=== PATIENT | male | born 1960 | race American Indian/Alaskan Native ===

== ENCOUNTER 2017-04-29 12:55 | Emergency (ER) | payer SELFPAY ==
[2017-04-29 12:56] VITALS: BMI 16.9
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
[2017-04-29 14:03] LABS: GRAN # 1.88 (1.4-6.5); GRAN % 65.5 % (50.0-68.0); HEMOGLOBIN 14.1 g/dL (14.0-18.0); LYMPH # 0.6 (1.2-3.4); LYMPH % 22.3 % (22.0-35.0); MEAN CELL VOLUME 90.8 fl (80.0-105.0); MEAN CORPUSCULAR HEMOGLOBIN 30.9 pg (25.0-35.0); MEAN CORPUSCULAR HGB CONC 34.1 g/dl (31.0-37.0); MONO # 0.4 (0.1-0.6); MONO % 12.2 % (1.0-6.0); RBC 4.56 10^6/uL (3.5-6.1)
[2017-04-29 14:13] LABS: ALBUMIN 4.1 g/dL (3.0-4.8); ALT/SGPT 25 U/L (7-56); AST/SGOT 35 U/L (17-59); BLOOD UREA NITROGEN 27 mg/dL (7-21); CALCIUM 9.5 mg/dL (8.4-10.5); GFR AFRICAN-AMERICAN > 60; GFR NON-AFRICAN AMERICAN > 60
[2017-04-29 14:28] LABS: WHITE BLOOD COUNT 2.9 10^3/ul (4.5-11.0)
[2017-04-29 15:14] LABS: URINE BILIRUBIN SMALL (NEGATIVE); URINE BLOOD LARGE (NEGATIVE); URINE GLUCOSE (UA) NEGATIVE (NEGATIVE); URINE LEUKOCYTE ESTERASE SMALL Leu/uL (NEGATIVE); URINE NITRATE NEGATIVE (NEGATIVE); URINE PROTEIN 30 mg/dL (<30 mg/dL); URINE UROBILINOGEN 0.2 E.U./dL (<1 E.U./dL)
[2017-04-29 15:20] LABS: URINE APPEARANCE SLIGHT-CLOUDY (CLEAR); URINE COLOR YELLOW (YELLOW)
[2017-04-29 15:22] LABS: URINE BACTERIA MOD (NEG)
[2017-04-29 15:23] LABS: URINE COARSE GRANULAR CAST TRACE /hpf (0-2)
--- NOTE | 2017-04-29 15:24 | RAD ---
HISTORY: Cough COMPARISON: 07/05/2016. TECHNIQUE: Chest PA and lateral FINDINGS: LUNGS: No active pulmonary disease. PLEURA: No significant pleural effusion identified. No pneumothorax apparent. CARDIOVASCULAR: Normal. OSSEOUS STRUCTURES: No significant abnormalities. VISUALIZED UPPER ABDOMEN: Normal. OTHER FINDINGS: None. IMPRESSION: No active disease. No significant interval change compared to the prior examination(s).
[2017-04-29 15:53] VITALS: BP 122/76; PULSE 72; RESP 18; TEMP 97.7; O2SAT 95
== END 2017-04-29 15:58 | disposition home or self-care (01) ==
LOC: ED 12:55
DX: N39.0 Urinary tract infection, site not specified (principal); I25.2 Old myocardial infarction; D64.9 Anemia, unspecified

== ENCOUNTER 2017-09-24 06:40 | Emergency (ER) | payer SELFPAY ==
[2017-09-24 06:49] VITALS: BMI 22.5
[2017-09-24 06:54] VITALS: RESP 18; TEMP 98
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
[2017-09-24 09:38] VITALS: PULSE 78
[2017-09-24 09:39] VITALS: BP 125/79; O2SAT 99
== END 2017-09-24 09:38 | disposition home or self-care (01) ==
LOC: ED 06:40
DX: H53.8 Other visual disturbances (principal)

== ENCOUNTER 2018-02-27 16:57 | Emergency (ER) | payer SELFPAY ==
[2018-02-27 17:18] VITALS: RESP 18; BMI 23.4
[2018-02-27] MEDS ORDERED: Sodium Chloride 0.9% 500 ML IV STA (17:54)
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
[2018-02-27 18:24] LABS: BASO # 0.02 K/mm3 (0.0-2.0); BASO % 0.3 % (0.0-3.0); EOS # 0.3 (0.0-0.7); EOS % 4.9 % (1.5-5.0); GRAN # 3.42 (1.4-6.5); GRAN % 58.4 % (50.0-68.0); HEMOGLOBIN 10.9 g/dL (14.0-18.0); LYMPH # 1.4 (1.2-3.4); LYMPH % 24.5 % (22.0-35.0); MEAN CELL VOLUME 92.9 fl (80.0-105.0); MEAN CORPUSCULAR HGB CONC 33.3 g/dl (31.0-37.0); MONO # 0.7 (0.1-0.6); MONO % 11.9 % (1.0-6.0); RBC 3.52 10^6/uL (3.5-6.1); RED CELL DISTRIBUTION WIDTH 14.9 % (11.5-14.5); WHITE BLOOD COUNT 5.9 10^3/uL (4.5-11.0)
[2018-02-27 18:28] LABS: INR 1.13; PARTIAL THROMBOPLASTIN TIME 32.6 Seconds (25.1-36.5); PROTHROMBIN TIME 12.9 SECONDS (9.4-12.5)
[2018-02-27 18:30] LABS: ALBUMIN 3.6 g/dL (3.0-4.8); ALT/SGPT 20 U/L (7-56); AST/SGOT 25 U/L (17-59); BLOOD UREA NITROGEN 15 mg/dL (7-21); CALCIUM 7.9 mg/dL (8.4-10.5); GFR NON-AFRICAN AMERICAN > 60
[2018-02-27 20:53] LABS: PH,URINE 6.5 (4.7-8.0); URINE APPEARANCE SL CLOUDY (CLEAR); URINE BILIRUBIN NEGATIVE (NEGATIVE); URINE BLOOD MODERATE (NEGATIVE); URINE COLOR YELLOW (YELLOW); URINE GLUCOSE (UA) NEGATIVE (NEGATIVE); URINE LEUKOCYTE ESTERASE NEGATIVE Leu/uL (NEGATIVE); URINE PROTEIN NEGATIVE mg/dL (<30 mg/dL)
[2018-02-27 21:08] LABS: URINE RBC 15 - 20 /hpf (0-2)
[2018-02-27 21:09] LABS: URINE BACTERIA FEW (NEG)
[2018-02-27 22:28] VITALS: BP 157/84; PULSE 68; O2SAT 97
[2018-02-27 22:31] VITALS: TEMP 98.7
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
== END 2018-02-27 22:24 | disposition home or self-care (01) ==
LOC: ED 16:57
DX: S42.192A Fracture of other part of scapula, left shoulder, initial encounter for closed fracture (principal); V13.4XXA Pedal cycle driver injured in collision with car, pick-up truck or van in traffic accident, initial encounter; Y93.55 Activity, bike riding; Y92.410 Unspecified street and highway as the place of occurrence of the external cause
CPT/HCPCS: 70450; 71260; 72125; 73030; 74177; 80053; 81001; 85025; 85610; 85730; 96374; 99284; J1885; J7040; Q9967

== ENCOUNTER 2018-07-24 13:28 | Emergency (ER) | payer OTHER ==
[2018-07-24 14:13] VITALS: RESP 18; TEMP 98.2
[2018-07-24 14:18] VITALS: BMI 21.9
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
[2018-07-24 16:03] LABS: ALBUMIN 3.8 g/dL (3.0-4.8); ALT/SGPT 8 U/L (7-56); AST/SGOT 18 U/L (17-59); BLOOD UREA NITROGEN 17 mg/dL (7-21); CALCIUM 8.4 mg/dL (8.4-10.5); GFR NON-AFRICAN AMERICAN > 60
[2018-07-24 16:14] LABS: BASO # 0.02 K/mm3 (0.0-2.0); BASO % 0.3 % (0.0-3.0); EOS # 0.1 (0.0-0.7); EOS % 1.2 % (1.5-5.0); HEMOGLOBIN 11.8 g/dL (14.0-18.0); LYMPH # 1.9 (1.2-3.4); LYMPH % 25.4 % (22.0-35.0); MEAN CELL VOLUME 93.3 fl (80.0-105.0); MEAN CORPUSCULAR HEMOGLOBIN 30.6 pg (25.0-35.0); MEAN CORPUSCULAR HGB CONC 32.8 g/dl (31.0-37.0); MEAN PLATELET VOLUME 9.5 fl (7.0-11.0); MONO # 0.5 (0.1-0.6); RBC 3.86 10^6/uL (3.5-6.1); RED CELL DISTRIBUTION WIDTH 14.1 % (11.5-14.5); WHITE BLOOD COUNT 7.6 10^3/uL (4.5-11.0)
[2018-07-24 17:48] LABS: URINE BILIRUBIN NEGATIVE (NEGATIVE); URINE BLOOD MODERATE (NEGATIVE); URINE GLUCOSE (UA) NEGATIVE (NEGATIVE); URINE LEUKOCYTE ESTERASE NEGATIVE Leu/uL (NEGATIVE); URINE PROTEIN NEGATIVE mg/dL (<30 mg/dL); URINE UROBILINOGEN 0.2 E.U./dL (<1 E.U./dL)
[2018-07-24 17:58] LABS: URINE APPEARANCE SL CLOUDY (CLEAR); URINE COLOR YELLOW (YELLOW)
[2018-07-24 18:14] LABS: URINE RBC TNTC /hpf (0-2)
[2018-07-24 18:15] LABS: URINE BACTERIA MOD /hpf
[2018-07-24 19:39] VITALS: BP 134/79; PULSE 76; O2SAT 98
== END 2018-07-24 19:50 | disposition home or self-care (01) ==
LOC: ED 13:28
DX: R31.9 Hematuria, unspecified (principal); I25.2 Old myocardial infarction; I20.9 Angina pectoris, unspecified; D64.9 Anemia, unspecified; Z82.49 Family history of ischemic heart disease and other diseases of the circulatory system